=== PATIENT | male | born 1985 | race Caucasian/White ===

== ENCOUNTER 2016-06-24 18:25 | Emergency (ER) | payer OTHER ==
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
== END 2016-06-24 19:50 | disposition home or self-care (01) ==
LOC: CFTX 18:25
DX: S66.911A Strain of unspecified muscle, fascia and tendon at wrist and hand level, right hand, initial encounter (principal); S29.011A Strain of muscle and tendon of front wall of thorax, initial encounter; S86.912A Strain of unspecified muscle(s) and tendon(s) at lower leg level, left leg, initial encounter; S86.911A Strain of unspecified muscle(s) and tendon(s) at lower leg level, right leg, initial encounter; F17.210 Nicotine dependence, cigarettes, uncomplicated; V43.52XA Car driver injured in collision with other type car in traffic accident, initial encounter
CPT/HCPCS: 71020; 73110; 73130; 73590; 99284